=== PATIENT | female | born 1970 | race African-American/Black ===

== ENCOUNTER 2017-01-15 13:54 | Observation (INO) ==
[2017-01-15] MEDS ORDERED: KETOROLAC 30 MG/1 ML VIAL IV STA (16:14)
[2017-01-15] MEDS ORDERED: KETOROLAC 30 MG/1 ML VIAL ONE (16:22)
--- NOTE | 2017-01-15 16:44 | CT Report ---
History: Dizziness. Right-sided weakness Date: 01/15/2017 Study: CT head without contrast Comparison exam: CT head September 20, [address] sections were obtained through the head without IV contrast. Total DLP measures 1012.1 mGy*cm. The exam was performed on an outpatient basis through the emergency room. The ventricles are midline in position without evidence of hydrocephalus. There is no mass or parenchymal hemorrhage. There is no gross CT evidence of acute cortical stroke. There is no extra-axial hematoma. There is no acute abnormality of the calvarium. There is moderate mucosal thickening in the ethmoid air cells bilaterally. There is at least mild mucosal thickening in the partially visualized maxillary and sphenoid sinuses. Impression: No acute intracranial abnormality. Sinus disease which may be chronic or allergic PROCEDURE INTERPRETED AT [facility] DEPARTMENT OF RADIOLOGY Final Report Signed by: Dr. Mally Barron
[2017-01-15 16:51] LABS: Basophils # 0.1 10*3/uL (0.0-0.2); Basophils % 0.5 % (0.0-0.8); Eosinophils # 0.7 10*3/uL (0.0-0.87); Eosinophils % 5.8 % (0.00-10.9); Hematocrit 35.3 VOL% (35.7-47.0); Hemoglobin 11.5 GM/DL (12.0-16.0); Immature Granulocytes % 0.3 %; Immature Granulocytes Absolute 0.03 #; Lymphocytes % 33.5 % (21.3-54.2); Mean Corpuscular HGB Conc 32.6 GM/DL (32-36); Mean Corpuscular Hemoglobin 24 PG (27-34); Mean Corpuscular Volume 73.1 FL (87-102); Mean Platelet Volume 10.4 FL (9.6-12.0); Monocytes # 0.8 10*3/uL (0.11-0.8); Monocytes % 6.3 % (1.7-12.7); Neutrophils # 6.4 10*3/uL (1.4-7.4); Neutrophils % 53.6 % (38.7-73.9); Platelet Count 443 T/CUMM (130-400); Red Blood Count 4.83 MC/CUMM (3.8-5.5); Red Cell Distribution Width 14.1 % (9.3-17.3); White Blood Count 11.9 T/CUMM (4-12)
[2017-01-15 16:59] LABS: PT Patient Result 10.4 SECS; Partial Thromboplastin Time 28.5 SECS (0-40)
--- NOTE | 2017-01-15 17:01 | Emergency Department Note ---
IGloria Gwan, am scribing for, and in the presence of, Betzy Denis DO 16:20 . IAdeel Debra, DO, personally performed the services described in this documentation, ascribed by Cori Castro in my presence, and it is both accurate and complete 701 . Arrival - Arrival Chief Complaint: Chest Pain Stated Complaint: high bp, dizziness, pain rt arm to chest ED Nursing Triage Note: c/o high bp and pain in rt arm and going into rt side of chest. +dizziness onset saturday Mode of Arrival: Ambulatory Limitations: No Limitations Source: Patient, Old Records Reviewed, RN Notes Reviewed - History of Present Illness HPI Narrative: Pt is a 46 y/o female, with a hx of HTN, who presents to the ED for further evaluation of elvated BP. During triage, pt's BP was 159/117. Patient stated that she reported to her PCP JOSE Morfin due to her intermittent dizziness. After further evaluation, the pt was prompted to report to the ED. She also noted that her dizziness is worse during the day and that she has been having pain in her right arm that radiates up her arm to her shoulder and into her chest on the right side. Patient confirmed that her sxs have an onset of 07/2017, that she has a FMHx of heart disease and CA. She denies any injury or trauma to that area, any hx of DM or any other medical problems. During exam, the patient stated that she has also been having pain/swelling in her right ankle with no hx of trauma or injury to that area. No other problems/complaints reported in ED. Onset (ago): week(s) Consistency: intermittent Severity: moderate Allergies/Adverse Reactions: Allergies Allergy/AdvReac Type Severity Reaction Status Date / Time sulfamethoxazole Allergy ITCHING Verified 07/16/15 04:42 [From Bactrim] trimethoprim [From Bactrim] Allergy ITCHING Verified 07/16/15 04:42 Home Medications: Home Medications Medication Instructions Recorded Confirmed Type Butalb/Acetaminophen/Caffeine 1 each PO Q24H 01/15/17 01/15/17 History [Tjpbvtrk-Lmrxdgmzgxapa-Gzlj Cp] Cetirizine HCl [Cetirizine Tab] 10 mg PO DAILY 01/15/17 01/15/17 History Estradiol [Estradiol Tab] 0.5 mg PO DAILY 01/15/17 01/15/17 History Fluticasone Propionate 1 spray BOTH NARES DAILY 01/15/17 01/15/17 History [Fluticasone 50 mcg Nasal [place]] amLODIPine [Norvasc] 5 mg PO DAILY 01/15/17 01/15/17 History cloNIDine TAB [Catapres Tab] 0.1 mg PO BEDTIME 01/15/17 01/15/17 History Review of System - Review of System 12 point system: reviewed and no additional remarkable complaints except as stated - Review of System Constitutional: Present: as per HPI, other (dizziness) Cardiovascular: Present: as per HPI, chest pain Musculoskeletal: Present: as per HPI, other (right ankle pain) Medical,Surgical,& Family Hx - Medical History Cardio: History of: Hypertension Neurology: History of: Neurological Problems (headaches) Hematology: History of: Anemia - Social History Smoking Status: Never smoker Frequency of Alcohol Use: None Type of Drug Use: None Exam Vital Signs: Vital Signs Temperature 97.6 F 01/15/17 15:49 Pulse Rate 68 01/15/17 16:00 Respiratory Rate 18 01/15/17 16:00 Blood Pressure 160/94 01/15/17 15:49 O2 Sat by Pulse Oximetry 98 01/15/17 15:49 - General General appearance: alert, in no apparent distress - Head Head exam: Present: atraumatic, normocephalic - Eye Eye exam: Present: normal appearance, PERRL, EOMI - ENT ENT exam: Present: normal oropharynx, mucous membranes moist, TM's normal bilaterally, normal external ear exam - Neck Neck exam: Present: full ROM, trachea midline. Absent: tenderness, meningismus , lymphadenopathy, thyromegaly - Chest Chest inspection: Present: symmetric chest wall rise. Absent: tenderness - Respiratory Respiratory exam: Present: normal lung sounds bilaterally. Absent: respiratory distress - Cardiovascular Cardiovascular exam: Present: regular rate, normal rhythm, normal heart sounds. Absent: murmur, rubs, gallop - Abdominal Exam Abdominal exam: Present: soft, normal bowel sounds. Absent: distention, tenderness, guarding, rebound - Extremities Exam Extremities exam: Present: full ROM. Absent: tenderness, pedal edema, calf tenderness - Back Exam Back exam: Present: full ROM. Absent: tenderness - Neurological Exam Neurological exam: Present: alert, oriented X3, CN II-XII intact. Absent: motor sensory deficit - Psychiatric Psychiatric exam: Present: normal affect, normal mood - Skin Skin exam: Present: warm, dry, intact, normal color Course Course Narrative: spoke with Dr Roldan who will admit pt Results - Labs CBC & BMP: 01/15/17 16:32 01/15/17 16:32 Lab Results: I have reviewed the patients labs Labs: Laboratory Tests 01/15/17 16:32 WBC 11.9 RBC 4.83 Hgb 11.5 L Hct 35.3 L MCV 73.1 L MCH 24 L Plt Count 443 H Laboratory Tests 01/15/17 16:32 INR 1.0 PT Patient/Control Mix 10.4 Circ Anticoag PTT 28.5 - Diagnostic Findings Procedure: Chest x-ray: report reviewed by me (No acute cardiopulmonary process. ), CT: report reviewed by me (Head CT: No acute intracranial abnormality. Sinus disease which may be chronic or allergic.) Disposition Clinical Impression: Chest pain Case discussed with: patient Disposition: Still a Patient Condition: Stable Time of Disposition: 17:54
--- NOTE | 2017-01-15 17:09 | XRay Report ---
Exam: XR chest 1V portable Indication: Chest pain , hypertension, dizziness, right arm pain Comparison study: 2009 Findings: The heart, mediastinum and bony structures are stable from prior. There is no focal consolidation, pneumothorax or pleural effusion identified. Impression: No acute cardiopulmonary process. PROCEDURE INTERPRETED AT [facility] [place] DEPARTMENT OF RADIOLOGY Final Report Signed by: Isai Parker
[2017-01-15 17:18] LABS: Alanine Aminotransferase 21 U/L (13-56); Alkaline Phosphatase 126 U/L (45-117); Aspartate Amino Transferase 16 U/L (0-37); Blood Urea Nitrogen 10 MG/DL (7-18); Glucose 84 MG/DL (74-106); Osmolality,Calculated 283.8 MOS/KG (273-304); Potassium 3.5 MMOL/L (3.5-5.1); Sodium 144 MMOL/L (136-145); Total Protein 8.3 G/DL (6.4-8.3); Troponin I Only < 0.015 NG/ML (0.00-0.045)
[2017-01-15] MEDS ORDERED: MORPHINE 2 MG/1 ML SYRINGE IV PRN (17:54)
[2017-01-15] MEDS ORDERED: ACETAMINOPHEN 325 MG TABLET PO PRN (17:54)
[2017-01-15] MEDS ORDERED: ONDANSETRON 4 MG/2 ML VIAL IV PRN (17:54)
[2017-01-15] MEDS ORDERED: POTASSIUM CHLORIDE 10 MEQ TABLET PO ONE (20:47)
[2017-01-15] MEDS ORDERED: [UNRECOGNIZED DRUG - OTHER] PO SCH (21:00)
[2017-01-15] MEDS ORDERED: BUTALB PO SCH (21:00)
[2017-01-15] MEDS ORDERED: ACETAMINOPHEN PO SCH (21:00)
[2017-01-15] MEDS ORDERED: CAFFEINE PO SCH (21:00)
[2017-01-15] MEDS: cloNIDine 0.1 MG TABLET PO SCH (21:32)
[2017-01-15] MEDS: DOCUSATE SODIUM 100 MG CAPSULE PO SCH (21:32)
[2017-01-15] MEDS: ENOXAPARIN 40 MG/0.4 ML SYRINGE SUBCUT SCH (21:32)
[2017-01-15] MEDS: SODIUM CHLORIDE 0.9% 1,000 ML IV SCH (21:32)
[2017-01-16] MEDS: SODIUM CHLORIDE 0.9% 1,000 ML IV SCH ×2 (04:10→14:00)
[2017-01-16 05:43] LABS: Risk Ratio 3.78; VLDL CHOLESTEROL 34.2 MG/DL
[2017-01-16 05:49] LABS: Calcium 8.6 MG/DL (8.5-10.1); Magnesium 2.2 MG/DL (1.8-2.4); Osmolality,Calculated 293.4 MOS/KG (273-304); Potassium 3.8 MMOL/L (3.5-5.1)
[2017-01-16 05:59] LABS: Troponin I Only < 0.015 NG/ML (0.00-0.045)
--- NOTE | 2017-01-16 07:20 | EKG Report ---
Stationary ECG Study [facility] Test Date: 01/16/2017 7:19:48 AM Pat Name: ALLAN SWANSON Department: Room: 263 Gender: F Care Advocate: DANIKA : 1970 Requested by: Betzy Denis Order Number: [id number] Reading MD: STANLEY GRIFFITHS Intervals [place] Rate: 66 P: 32 CO: 175 QRS: 45 QRSD: 82 T: 35 QT: 445 QTc: 458 Interpretive Statements SINUS RHYTHM SEPTAL MYOCARDIAL INFARCTION, OF INDETERMINATE AGE Electronically Signed On 01-18-17 12:15:51 DIRECTOR OF PUPIL PERSONNEL PROGRAM by STANLEY GRIFFITHS [email or web address]
--- NOTE | 2017-01-16 09:24 | Internal Med History&Physical ---
Assessment and Plan (1) Chest pain Status: Acute Assessment and plan: 46-year-old female admitted to acute care * Shoulder and chest pain. It appears atypical in nature. Cardiac enzymes are negative. EKG shows nonspecific ST-T changes. Will get cardiology to evaluate with her strong family history of heart disease * Hypertension. Blood pressure has been high. Will adjust her medications * Chronic headaches. Probably migraine. She is not on any preventive medications. Not sure if the headaches are coming from blood pressure being high. * Discussed with patient and her family. * I am seeing patient for Dr. Roldan who is out with sickness. Current Visit: Yes (2) Uncontrolled hypertension Status: Acute Current Visit: Yes (3) Chronic headaches Status: Acute Current Visit: Yes History of Present Illness Chief complaint: Shoulder pain and dizziness History of present illness: Ms. Sandy is a 46 year old female with history of hypertension and chronic headaches who presented to the emergency room with high blood pressure. She has been having dizziness off and on. She had an episode of dizziness about 2 weeks ago. She went to after-hours clinic and was sent to the emergency room because of elevated blood pressure. She was also having pain in the right arm that radiated to the shoulder and somewhat into her chest. She has been having these symptoms for past week. She denies any chest pain on exertion. She denies any nausea vomiting or diarrhea. She denies any fever or chills. 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 No history of smoking alcohol use. She also has been having some swelling in her ankles. She has had previous reaction to ashley inhibitors and Bactrim. She is a schoolteacher Home Medications Medication Instructions Recorded Confirmed Type Butalb/Acetaminophen/Caffeine 1 each PO Q24H 01/15/17 01/15/17 History [Lknhpwky-Sckkxamfrlkcq-Wtye Cp] Cetirizine HCl [Cetirizine Tab] 10 mg PO DAILY 01/15/17 01/15/17 History Estradiol [Estradiol Tab] 0.5 mg PO DAILY 01/15/17 01/15/17 History Fluticasone Propionate 1 spray BOTH NARES DAILY 01/15/17 01/15/17 History [Fluticasone 50 mcg Nasal [place]] amLODIPine [Norvasc] 5 mg PO DAILY 01/15/17 01/15/17 History cloNIDine TAB [Catapres Tab] 0.1 mg PO BEDTIME 01/15/17 01/15/17 History Allergies Allergy/AdvReac Type Severity Reaction Status Date / Time lisinopril Allergy HIVES Verified 01/16/17 02:19 sulfamethoxazole Allergy ITCHING Verified 07/16/15 04:42 [From Bactrim] trimethoprim [From Bactrim] Allergy ITCHING Verified 07/16/15 04:42 Medical,Surgical,& Family Hx - Medical History Cardio: History of: Hypertension Neurology: History of: Neurological Problems (headaches) Hematology: History of: Anemia - Surgical History HEENT Surgeries: Surgical HX of: Tonsilectomy & Adenoidectomy Abdominal Surgeries: Surgical HX of: Cholecystectomy Reproductive Surgeries: Surgical HX of;: Genitourinary Surgery (Bladder surgery) , Hysterectomy - Family History Family History: Reports;: Family Cancer (mother, breast CA dad lung CA), Family Heart Disease - Social History Smoking Status: Never smoker Frequency of Alcohol Use: None Type of Drug Use: None Marital Status: Lives With:: Spouse Functional capacity: independent ambulation 12 point system: reviewed and no additional remarkable complaints except as stated (Mentioned in HPI) Exam - Constitutional Vitals: Period Temp Pulse Resp BP Sys/[place] Pulse Ox Last 24 Hr 97 F-98.3 F 73-77 16-20 106-137/61-100 95-98 Exam: Examination: GENERAL: NAD. HEENT: PERRLA. EOMI. Mucous membranes are moist. NECK: Neck is supple. No JVD. No carotid bruit. No thyromegaly. CVS: Regular rate and rhythm. S1 and S2 are normal. RESPIRATORY: Lungs are clear. No rales or rhonchi. ABDOMEN: Soft and nontender. Bowel sounds are present. No hepatosplenomegaly. EXT: No edema. Peripheral pulses are present. MEDICAL CLAIMS EXAMINER: No gross focal changes SKIN: Warm and dry. MSK: No obvious deformity. Results - Labs CBC & BMP: 01/15/17 16:32 01/16/17 04:51 Lab Results: I have reviewed the past 24 hour labs
--- NOTE | 2017-01-16 12:27 | Ultrasound Report ---
Bilateral carotid Doppler. Indication: Dizziness. Grayscale, color-flow, and spectral analysis performed and interpreted. There is mild plaque noted at the origin of the right external carotid artery. The right internal carotid artery peak systolic velocity is 88 cm/s, with an IC/CC ratio of 1.4. There is mild calcific plaque present at the left carotid bulb. The left internal carotid artery peak systolic velocity is 64 cm/s, with an IC/CC ratio of 0.8. There is antegrade flow within each vertebral artery. Impression: Using NASCET criteria, findings consistent with less than 50% stenosis bilaterally. PROCEDURE INTERPRETED AT [facility] DEPARTMENT OF RADIOLOGY Final Report Signed by: Dr. Oneyda Paz
[2017-01-16] MEDS: DOCUSATE SODIUM 100 MG CAPSULE PO SCH ×2 (13:30→22:21)
[2017-01-16] MEDS: amLODIPine 5 MG TABLET PO SCH (13:30)
[2017-01-16] MEDS: CETIRIZINE 10 MG TABLET PO SCH (13:30)
[2017-01-16] MEDS: POTASSIUM CHLORIDE 10 MEQ TABLET PO SCH (13:30)
[2017-01-16] MEDS: ESTRADIOL 1 MG TABLET PO SCH (13:30)
[2017-01-16] MEDS: PANTOPRAZOLE 40 MG TABLET PO SCH (13:30)
[2017-01-16] MEDS: FLUTICASONE 50 MCG NASAL SPRAY 16 GM BOTTLE BOTH NARES SCH (13:30)
[2017-01-16] MEDS ORDERED: ASPIRIN CHEW 81 MG TABLET PO ONE (14:35)
[2017-01-16] MEDS: GABAPENTIN 100 MG CAPSULE PO SCH ×2 (15:19→22:21)
[2017-01-16] MEDS: traMADol 50 MG TABLET PO SCH ×2 (15:20→22:25)
[2017-01-16] MEDS: NAPROXEN 250 MG TABLET PO SCH ×2 (15:20→22:20)
[2017-01-16] MEDS: hydroCHLOROthiazide 12.5 MG CAPSULE PO SCH (15:21)
--- NOTE | 2017-01-16 16:03 | Sleep Medicine Consult ---
Assessment and Plan (1) Unspecified sleep apnea Status: Acute Assessment and plan: Her history certainly is concerning for sleep apnea. With severity of her sleepiness and her difficulty controlling hypertension, polysomnography is indicated. We will set her up for sleep study evaluation. Current Visit: Yes (2) Uncontrolled hypertension Status: Chronic Assessment and plan: The prevalence rate for obstructive sleep apnea patients with hypertension is 35 %. That rate can be as high as 80% in patients who require 4 or more medications for blood pressure control. Current Visit: Yes History of Present Illness Chief complaint: sleep apnea History of present illness: Ms. Sandy is a 46 year old female admitted with chest pain. She has a history of loud snoring and will awaken from sleep short of breath. She has difficulty maintaining sleep and has significant problems with daytime fatigue and sleepiness. She's never been told that she stops breathing during her sleep but her snoring has been noted to be loud and disruptive to the sleep of her . She is quite sleepy during the day, having an [place] sleepiness score of over 15. She is admitted on this occasion with atypical chest pain. Home Medications Medication Instructions Recorded Confirmed Type Butalb/Acetaminophen/Caffeine 1 each PO Q24H 01/15/17 01/15/17 History [Gmsyllmb-Fplqydomacbet-Psxa Cp] Cetirizine HCl [Cetirizine Tab] 10 mg PO DAILY 01/15/17 01/15/17 History Estradiol [Estradiol Tab] 0.5 mg PO DAILY 01/15/17 01/15/17 History Fluticasone Propionate 1 spray BOTH NARES DAILY 01/15/17 01/15/17 History [Fluticasone 50 mcg Nasal [place]] amLODIPine [Norvasc] 5 mg PO DAILY 01/15/17 01/15/17 History cloNIDine TAB [Catapres Tab] 0.1 mg PO BEDTIME 01/15/17 01/15/17 History Allergies Allergy/AdvReac Type Severity Reaction Status Date / Time lisinopril Allergy HIVES Verified 01/16/17 02:19 sulfamethoxazole Allergy ITCHING Verified 07/16/15 04:42 [From Bactrim] trimethoprim [From Bactrim] Allergy ITCHING Verified 07/16/15 04:42 Review of systems: Also notable for restless legs and discomfort of her legs that disturb her sleep. Exam (Pulmonay) H&P - Constitutional Vitals: Period Temp Pulse Resp BP Sys/[place] Pulse Ox Last 24 Hr 97 F-98.3 F 73-81 16-20 106-137/61-100 95-98 Exam: She is alert and responsive in no acute distress. Pupils equal round reactive to light and accommodation. Extraocular movements intact. Oropharynx with class IV Mallampati exam. Neck is supple without adenopathy or thyromegaly. No supraclavicular adenopathy is noted. Chest with symmetrical breath sounds without focal wheezes, rhonchi, or rales. Cardiac exam reveals a regular rhythm without murmur or gallop. Abdomen soft nontender without palpable hepatosplenomegaly or mass. Extremities are without increased clubbing cyanosis or edema. Neurologically, she is grossly intact. Medical,Surgical,& Family Hx - Medical History Cardio: History of: Hypertension Neurology: History of: Neurological Problems (headaches) Hematology: History of: Anemia - Surgical History HEENT Surgeries: Surgical HX of: Tonsilectomy & Adenoidectomy Abdominal Surgeries: Surgical HX of: Cholecystectomy Reproductive Surgeries: Surgical HX of;: Genitourinary Surgery (Bladder surgery) , Hysterectomy - Family History Family History: Reports;: Family Cancer (mother, breast CA dad lung CA), Family Heart Disease Additional Family History: She has a nephew with obstructive sleep apnea - Social History Smoking Status: Never smoker Frequency of Alcohol Use: None Type of Drug Use: None Results - Labs CBC & BMP: 01/15/17 16:32 01/16/17 04:51 Lab Results: I have reviewed the past 24 hour labs
--- NOTE | 2017-01-16 17:24 | ECHO Report ---
Dania Sandy Exam Date: 01/16/2017 13:36 Referring Physician: Technologist: Ila Rivers RDCS Age: 46 Ht (in): Wt (lb): Gender: F Exam Location: [facility] Echo Indications: Chest pain, unspecified, Essential (primary) hypertension, Dizziness and giddiness, Shortness of breath, Orthopnea, Chronic headaches BP: / HR: Rhythm: Sinus Technical Quality: Good IMPRESSIONS Left ventricular ejection fraction is estimated at 65 %. Findings suggestive of left ventricular diastolic dysfunction. The right atrium is mildly enlarged. The left atrium is mildly enlarged. There is no mitral regurgitation. Morphologically normal aortic valve without significant sclerosis or stenosis. Trace to mild tricuspid valve regurgitation. Tricuspid regurgitation velocities suggest a PAP of 39 mmHg. Morphologically normal pulmonic valve without significant stenosis. MEASUREMENTS (Male / Female) Normal Values 2D ECHO LV Diastolic Diameter PLAX 4.6 cm 4.2 - 5.9 / 3.9 - 5.3 cm LV Systolic Diameter PLAX 2.4 cm LV Fractional Shortening PLAX 49.0 % IVS Diastolic Thickness 0.9 cm 0.6 - 1.0 / 0.6 - 0.9 cm LVPW Diastolic Thickness 0.9 cm 0.6 - 1.0 / 0.6 - 0.9 cm RV Internal Dim ED PLAX 2.8 cm Aortic Root Diameter 3.1 cm LA Systolic Diameter LX 3.9 cm 3.0 - 4.0 / 2.7 - 3.8 cm DOPPLER TR Peak Velocity 271.0 cm/s TR Peak Gradient 29.4 mmHg FINDINGS Left Ventricle Normal left ventricular cavity size. Normal left ventricular wall thickness. Left ventricular ejection fraction is estimated at 65 %.Findings suggestive of left ventricular diastolic dysfunction. Right Ventricle The right ventricle is normal in size and function. Right Atrium The right atrium is mildly enlarged. Left Atrium The left atrium is mildly enlarged. Mitral Valve Morphologically normal mitral valve without significant stenosis or prolapse. There is no mitral regurgitation. Aortic Valve Morphologically normal aortic valve without significant sclerosis or stenosis. There is no aortic regurgitation. Tricuspid Valve Morphologically normal tricuspid valve. Trace to mild tricuspid valve regurgitation. Tricuspid regurgitation velocities suggest a PAP of 39 mmHg. Pulmonic Valve Morphologically normal pulmonic valve without significant stenosis. There is no pulmonic regurgitation. Pericardium Normal pericardium without effusion. Aorta Normal ascending aorta dimension. Roland Castillo MD (Electronically Signed) Final Date: 16 January 2017 17:24
[2017-01-16] MEDS ORDERED: traZODone 50 MG TABLET PO SCH (21:00)
--- NOTE | 2017-01-16 21:46 | Cardiology Consult Note ---
Stephan Watson Rachel, RN, am scribing for, and in the presence of, Roland Castillo MD 21:45. Assessment and Plan (1) Atypical chest pain Status: Acute Assessment and plan: Her chest pain seems to be musculoskeletal in nature. As her pain was reproducible upon exam. Her troponins have been negative 2. Her EKG did not reveal any acute findings. Will continue to monitor troponins and EKG. Chest pain is atypical. However she does have risk factors for cardiac disease My plan: Have her stay on an aspirin 81 mg per day. She she does not have ACS and had only one episode, so we can let her go home tomorrow and do an outpatient stress test next week. Meanwhile will treat for reproducible right shoulder pain with Tylenol, tramadol, naproxin , gabapentin. For her hypertension we'll add HCTZ 12.5 mg daily Echo-evaluate orthopnea and PND-could be some diastolic dysfunction or systolic dysfunction. She does have some symptoms suggestive of sleep apnea. Dr. Bernard is consulted The dizziness carotid ultrasound was done. Has some anxiety/insomnia. Will treat with trazodone 25 mg daily at bedtime Check fasting lipid profile and treat per guidelines. Thank you for allowing to participate in this patient's care Current Visit: Yes (2) Hyperlipidemia Status: Acute Assessment and plan: Consider starting patient on a statin for further risk stratification. Current Visit: Yes (3) Orthopnea Status: Acute Assessment and plan: Echo has been ordered to further evaluate this. BNP was done and was noted to be 12. Current Visit: Yes (4) Family history of heart disease in brother Status: Chronic Current Visit: Yes (5) Uncontrolled hypertension Status: Chronic Assessment and plan: Patient has history of hypertension. This is regularly managed by Dr. Erma Roldan. Her blood pressure has been well controlled during her hospital stay. We will continue with current plan of care. Current Visit: Yes (6) Dizziness Status: Acute Assessment and plan: She reports dizzy spells. Carotid Dopplers have been ordered to further evaluate. Current Visit: Yes (7) Sleep disorder Status: Acute Assessment and plan: We will consult Dr. Bernard to further evaluate patient's sleep disorder. Current Visit: Yes History of Present Illness - Data of Consult Patient: new to practice Consult date: 01/16/17 Requesting Physician: Erma Roldan Primary care physician: Erma Roldan - Consult Narrative Reason for consult: Chest pain and right arm pain History of present illness: Ms. Sandy is a 46 year old female without known coronary artery disease, not routinely followed by college arch[facility]. Her primary care provider is Dr. Erma Roldan. She presented to [facility] for further evaluation of right arm pain , chest discomfort and dizziness. She has risk factors significant for hypertension, sedentary lifestyle, obesity, hyperlipidemia (however patient is not on a statin at home. She reports that this is controlled with her diet.) and family history of premature coronary artery disease (brother had MS at age 45 and her other brother had an MS at age 48). She is a past medical history of migraines. Significant surgical history is noted. She tells me that she has never had a cardiac workup. She was in her usual state of health until 2 weeks ago when she began having right arm pain while cooking. This pain then radiated to her left chest wall. She describes this pain as a severe stabbing pain that lasted 5-10 minutes. She took 2 aspirins and laid down and this relieved her pain. She reports that this was not made worse with activity. Shortness of breath and dizziness was also associated with this. She denies diaphoresis, nausea and palpitations. She reports having no further episodes of this chest discomfort. She tells me that she has continued to have right arm soreness. This is aggravated with range of motion. She tells me that she has been picking up her granddaughter with her right arm multiple times a day. Upon exam, this pain is reproducible. She tells me that this is the same pain that she felt 2 weeks ago, only less severe and without radiation to her chest. Of note, she also reports that she has been feeling dizzy approximately 2-3 times a day since last Saturday. She tells me that this dizziness last approximately 10 minutes and gets better when she sits down. She is unable to identify any aggravating factors. She tells me that she has been checking her blood pressure regularly at home. She reports that her blood pressure has been averaging around 145/95. She denies any heart racing and palpitations. She tells me that Dr. Mullins diagnosed her with a sinus cyst in the past, she is worried that this could possibly be contributing to her dizziness. She reports that she has felt very tired over the past week. She admits to snoring loudly at night. Will get Dr. Bernard to come evaluate her for obstructive sleep apnea. She also tells me that she cannot lay flat to sleep at night due to shortness of breath. She sleeps on multiple pillows in order to sleep comfortably. This is concerning, will order echo for further evaluation. Patient was seen and examined on telemetry. She is awake alert and in no acute distress. She is currently chest pain free. She denies shortness of breath, palpitations and dizziness. Her troponins have been negative 2 checks. BNP is 12. EKG does not reveal any acute findings. CC: Erma Roldan, DO - Home Medications and Allergies Home Medications: Home Medications Medication Instructions Recorded Confirmed Type Butalb/Acetaminophen/Caffeine 1 each PO Q24H 01/15/17 01/15/17 History [Gkfqzofw-Vwyytpuivyydv-Ifpl Cp] Cetirizine HCl [Cetirizine Tab] 10 mg PO DAILY 01/15/17 01/15/17 History Estradiol [Estradiol Tab] 0.5 mg PO DAILY 01/15/17 01/15/17 History Fluticasone Propionate 1 spray BOTH NARES DAILY 01/15/17 01/15/17 History [Fluticasone [address] [place]] amLODIPine [Norvasc] 5 mg PO DAILY 01/15/17 01/15/17 History cloNIDine TAB [Catapres Tab] 0.1 mg PO BEDTIME 01/15/17 01/15/17 History Allergies/Adverse Reactions: Allergies Allergy/AdvReac Type Severity Reaction Status Date / Time lisinopril Allergy HIVES Verified 01/16/17 02:19 sulfamethoxazole Allergy ITCHING Verified 07/16/15 04:42 [From Bactrim] trimethoprim [From Bactrim] Allergy ITCHING Verified 07/16/15 04:42 - Constitutional Constitutional: Present: fatigue, headache(s). Absent: anorexia, chills, fever( s), weakness, weight gain, weight loss - Cardiovascular Cardiovascular: Present: as per HPI, dyspnea, radiating jaw, neck or arm pain, lightheadedness, orthopnea. Absent: claudication, diaphoresis, edema, palpitations, PND - Respiratory Respiratory: Present: dyspnea, snoring. Absent: cough, hemoptysis, dyspnea on exertion, wheezing, pain on inspiration, change in phlegm color - Gastrointestinal Gastrointestinal: Absent: abdominal pain, coffee ground emesis, constipation, cramping, diarrhea, heartburn, melena, nausea, vomiting, jaundice - Musculoskeletal Musculoskeletal: Present: other (Right arm pain). Absent: joint swelling, myalgias - Neurological Neurological: Present: dizziness, headache(s). Absent: numbness, paresthesias, radicular pain, syncope - Psychiatric Psychiatric: Absent: anxiety, depression, panic attacks Medical,Surgical,& Family Hx - Medical History Cardio: History of: Hypertension Neurology: History of: Neurological Problems (headaches) Endocrine: History of: Dyslipidemia (However this has been controlled with her diet.) Hematology: History of: Anemia - Surgical History HEENT Surgeries: Surgical HX of: Tonsilectomy & Adenoidectomy Abdominal Surgeries: Surgical HX of: Cholecystectomy Reproductive Surgeries: Surgical HX of;: Genitourinary Surgery (Bladder surgery) , Hysterectomy - Family History Family History: Reports;: Family Cancer (mother, breast CA dad lung CA), Family Heart Disease - Social History Smoking Status: Never smoker Frequency of Alcohol Use: None Type of Drug Use: None Physical Examination Vital Signs Temp Pulse Resp BP Pulse Ox 97.5 F L 82 18 159/117 98 01/15/17 14:03 01/15/17 14:03 01/15/17 14:03 01/15/17 14:03 01/15/17 14:03 General: Present: Appears Well, No Apparent Distress Neck: Present: Supple Neck, Midline Trachea, No JVD/HJR, No Masses, No Bruit Cardiac: Present: Reg Rate and Rhythm, Regular Rate, Regular Rhythm, S1/S2, No Murmur. Absent: Gallop, Tachycardia, Bradycardia Lungs: Present: Normal Exam, Clear Ascult./Percussion, Normal Breath Sounds, No Wheeze, Rales, Rhonchi. Absent: Oxygen Abdomen: Present: Soft, Active Bowel Sounds, No Masses, Non-Tender. Absent: Ascites, Firm Skin: Present: Clear. Absent: Rash, Suspicious Lesions, Ulceration Extremities: Present: Normal Gait, No Clubbing, No Cyanosis, No Edema, Normal Upper Extr. Pulses, Normal Lower Extr. Pulses Result/EKG - Labs CBC & BMP: 01/15/17 16:32 01/16/17 04:51 Lab Results: I have reviewed the past 24 hour labs Labs: Laboratory Results - last 24 hr 01/16/17 01/16/17 01/16/17 04:50 04:50 04:51 Sodium 147 H Potassium 3.8 Chloride 110 H Carbon Dioxide 27 Anion Gap 13.8 BUN 16 Creatinine 0.90 GFR Calculation 90 BUN/Creatinine Ratio 17.00 Glucose 112 H Calculated Osmolality 293.4 Calcium 8.6 Magnesium 2.2 Total Creatine Kinase 246 H D Troponin I < 0.015 Triglycerides 171 H Cholesterol 208 H LDL Cholesterol 128.0 VLDL Cholesterol 34.2 HDL Cholesterol 55 Heart Disease Risk Ratio 3.78 - EKG EKG results: interpreted by me, sinus rhythm I, Roland Castillo MD, personally performed the services described in this documentation, ascribed by Oneyda Rothman RN in my presence, and it is both accurate and complete .
[2017-01-16] MEDS ORDERED: SIMVASTATIN 10 MG TABLET PO SCH (22:00)
[2017-01-16] MEDS: cloNIDine 0.1 MG TABLET PO SCH (22:21)
[2017-01-16] MEDS: ENOXAPARIN 40 MG/0.4 ML SYRINGE SUBCUT SCH (22:22)
--- NOTE | 2017-01-17 07:20 | EKG Report ---
Stationary ECG Study [facility] Test Date: 01/17/2017 7:19:31 AM Pat Name: ALLAN SWANSON Department: Room: 263 Gender: F Paperback Machine Operator: DANIKA : 1970 Requested by: Betzy Denis Order Number: [id number] Reading MD: HANNAH MENDEZ Intervals [place] Rate: 63 P: 30 MD: 185 QRS: 45 QRSD: 90 T: 32 QT: 438 QTc: 445 Interpretive Statements SINUS RHYTHM Electronically Signed On 01-20-17 20:04:16 ORDER PICKER/ASSEMBLER by HANNAH MENDEZ [email or web address]
[2017-01-17] MEDS: FLUTICASONE 50 MCG NASAL SPRAY 16 GM BOTTLE BOTH NARES SCH (08:49)
[2017-01-17] MEDS: GABAPENTIN 100 MG CAPSULE PO SCH (08:49)
[2017-01-17] MEDS: POTASSIUM CHLORIDE 10 MEQ TABLET PO SCH (08:50)
[2017-01-17] MEDS: NAPROXEN 250 MG TABLET PO SCH (08:50)
[2017-01-17] MEDS: traMADol 50 MG TABLET PO SCH (08:50)
[2017-01-17] MEDS: CETIRIZINE 10 MG TABLET PO SCH (08:50)
[2017-01-17] MEDS: hydroCHLOROthiazide 12.5 MG CAPSULE PO SCH (08:50)
[2017-01-17] MEDS: PANTOPRAZOLE 40 MG TABLET PO SCH (08:50)
[2017-01-17] MEDS: ESTRADIOL 1 MG TABLET PO SCH ×2 (08:50→08:56)
[2017-01-17] MEDS: amLODIPine 5 MG TABLET PO SCH (08:50)
[2017-01-17] MEDS: DOCUSATE SODIUM 100 MG CAPSULE PO SCH (08:50)
[2017-01-17] MEDS ORDERED: ASPIRIN CHEW 81 MG TABLET PO SCH (09:00)
--- NOTE | 2017-01-17 11:41 | EKG Report ---
Stationary ECG Study [facility] Test Date: 01/15/2017 2:09:30 PM Pat Name: ALLAN SWANSON Department: Room: 263 Gender: F Edge Cutter: Keyla : 1970 Requested by: Betzy Denis Order Number: [id number] Reading MD: STANLEY GRIFFITHS Intervals [place] Rate: 69 P: 49 IA: 161 QRS: 48 QRSD: 85 T: 37 QT: 406 QTc: 426 Interpretive Statements SINUS RHYTHM QUESTION LEAD SWITCH Electronically Signed On 01-17-17 12:20:47 JUICE STANDARDIZER by STANLEY GRIFFITHS [email or web address]
--- NOTE | 2017-01-17 12:54 | Discharge Summary ---
Hospital Course - Hospital Course Hospital Course: This is a 46 year old female with history of HTN, headaches, allergic rhinitis, intermittent SOB and sleep issues, who had presented with chest pain and dizziness. Chest pain has resolved, but dizziness has lingered to some extent. Sleep study has been scheduled outpatient, and she will be sent home with Meclizine. She will have cardiac stress testing outpatient per Dr. Castillo. ECHO showed mild pulmonary hypertension and left ventricular diastolic dysfunction, which may be explained by untreated sleep apnea. EF was normal at 65%. CT brain indicated chronic sinus disease, which may also be contributing to dizziness. Furthermore, she has had episodes of low normotensive blood pressure, likely to contribute to dizziness as well. Medications will be adjusted upon discharge. She can be discharged today. Discussed with patient and at bedside. She had been hypertensive upon admission. Diagnosis - Discharge Diagnosis (1) Chronic headaches Status: Chronic (2) Dizziness Status: Chronic (3) Family history of heart disease in brother Status: Chronic (4) Hyperlipidemia Status: Chronic (5) Orthopnea Status: Chronic (6) Unspecified sleep apnea Status: Chronic (7) Atypical chest pain Status: Resolved (8) Hypertension Status: Resolved Specialty Discharge - Follow Up or Referrals Follow up with: Roland Castillo MD [Physician] - 1 Week (OP cardiolyte next week & F/U with Jonathan in 2 weeks) Discharge Plan - Discharge Data Disposition: Disch To Home/Self Care Condition at Discharge: Stable Discharge Diet: low fat, low cholesterol Activity: increase activity as tolerated - Discharge Medications New [place]apentin Cap/Tab [Neurontin Cap/Tab] 100 mg PO TID #90 capsule Simvastatin [Zocor] 10 mg PO BEDTIME #30 tablet Acetaminophen Tab [Tylenol Tab] 650 mg PO Q6H PRN #0 tablet PRN Reason: Fever > 100.4 Or Headache Aspirin Chew Tab 81 mg PO DAILY tablet Docusate Sodium Cap [Colace Cap] 100 mg PO BID capsule Meclizine HCl 25 mg PO BEDTIME #30 tablet Pantoprazole Tab [Protonix Tab] 40 mg PO DAILY #14 tablet Potassium Chloride Cap/Tab [K Dur] 10 meq PO DAILY #30 tablet hydroCHLOROthiazide [Hydrochlorothiazide] 12.5 mg PO DAILY #30 capsule traMADol TAB [Ultram] 50 mg PO BID #14 tablet traZODone [Desyrel] 25 mg PO BEDTIME #30 tablet Continue Cetirizine HCl [Cetirizine Tab] 10 mg PO DAILY Butalb/Acetaminophen/Caffeine [Ztfcczsg-Dlzqkhdsfeuka-Fvnh Cp] 1 each PO Q24H Estradiol [Estradiol Tab] 0.5 mg PO DAILY Fluticasone Propionate [Fluticasone 50 mcg Nasal [place]] 1 spray BOTH NARES DAILY Discontinued amLODIPine [Norvasc] 5 mg PO DAILY cloNIDine TAB [Catapres Tab] 0.1 mg PO BEDTIME - Follow Up or Referral Follow Up: Roland Castillo MD [Physician] - 1 Week (OP ST cardiolyte next week & F/U with Jonathan in 2 weeks) Maura Bernard MD [Physician] - Erma Roldan DO [Physician] - - Forms/Instructions Additional Discharge Instructions: Follow up in clinic with Dr. Rahul Roldan at next appointment. Follow up with Dr. Bernard for sleep study per appointment set within the next 2-3 weeks. Follow up with Dr. Castillo for cardiac stress testing per appointment set within the next 1-2 weeks. Exam - Constitutional Vitals: Period Temp Pulse Resp BP Sys/[place]encia Pulse Ox Last 24 Hr 97.7 F-98.2 F 64-81 16-20 100-144/68-92 95-100 General appearance: no acute distress - Respiratory Respiratory exam: Present: clear to auscultation bilaterally - Cardiovascular Cardiovascular exam: Present: regular rate and rhythm - GI/Abdominal GI/Abdominal exam: Present: normal bowel sounds, soft. Absent: tenderness - Extremities Exam Extremities exam: Absent: edema - Neurological Exam Neurological exam: Present: alert, oriented X3 - Psychiatric Psychiatric exam: Present: normal affect, normal mood - Skin Skin exam: Present: warm, dry Discharge Results Labs on day of discharge: Labs from last 24 hours 01/16/17 12:31 B-Natriuretic Peptide 21 DS: Provider Date of admission: 01/15/17 17:54 Primary care physician: . No PCP Attending physician on admission: Erma Roldan DO Consults: 01/15/17 18:01 Consult to Pharmacy [CONS] Routine Reason for Pharmacy Consult: Adjust Meds Renal Funct 01/16/17 10:47 Consult to Physician [CONS] Routine Comment: possible sleep apnea Consulting Provider: Maura Bernard Consulting Provider Notified: No When should Consulting Provider be notified: Now 01/16/17 11:01 Consult to Sleep Center [CONS] Routine Reason for Sleep Center: Sleep Center Physician Consult Comment: possible sleep apnea Discharging clinician: Erma Roldan DO Expected date of discharge: 01/17/17
--- NOTE | 2017-01-17 12:55 | Internal Med Progress Note ---
Assessment and Plan (1) Atypical chest pain Status: Resolved Current Visit: Yes (2) Chronic headaches Status: Chronic Current Visit: Yes (3) Dizziness Status: Chronic Current Visit: Yes (4) Hyperlipidemia Status: Chronic Current Visit: Yes (5) Orthopnea Status: Chronic Current Visit: Yes (6) Unspecified sleep apnea Status: Chronic Current Visit: Yes Internal Medicine - PN: Subj Interval history: This is a 46 year old female with history of HTN, headaches, allergic rhinitis, intermittent SOB and sleep issues, who had presented with chest pain and dizziness. Chest pain has resolved, but dizziness has lingered to some extent. Sleep study has been scheduled outpatient, and she will be sent home with Meclizine. She will have cardiac stress testing outpatient per Dr. Castillo. Also, she reports blood pressure now low normotensive, which may be contributing to dizziness. Exam (Progress Note) - Constitutional Vitals: Period Temp Pulse Resp BP Sys/[place] Pulse Ox Last 24 Hr 97.7 F-98.2 F 64-81 16-20 100-144/68-92 95-100 General appearance: no acute distress - Respiratory Respiratory exam: Present: clear to auscultation bilaterally - Cardiovascular Cardiovascular exam: Present: regular rate and rhythm - GI/Abdominal GI/Abdominal exam: Present: normal bowel sounds, soft. Absent: tenderness - Extremities Exam Extremities exam: Absent: edema - Neurological Exam Neurological exam: Present: alert, oriented X3 - Psychiatric Psychiatric exam: Present: normal mood - Skin Skin exam: Present: warm, dry Results - Labs CBC & BMP: 01/15/17 16:32 01/16/17 04:51 Specialty Discharge - Follow Up or Referrals Follow up with: Roland Castillo MD [Physician] - 1 Week (OP ST cardiolyte next week & F/U with Jonathan in 2 weeks)
[2017-01-17 13:21] VITALS: BP 126/81
--- NOTE | 2017-01-17 13:54 | Cardiology Progress Note ---
Shirley, Oneyda Rothman RN, am scribing for, and in the presence of, Roland Castillo MD 13:53. Assessment and Plan (1) Atypical chest pain Status: Resolved Assessment and plan: Her chest pain seems to be musculoskeletal in nature. As her pain was reproducible upon exam. Her troponins have been negative 2. Her EKG did not reveal any acute findings. Will continue to monitor troponins and EKG. 01/16/17 Assessment and plan-Chest pain is atypical. However she does have risk factors for cardiac disease My plan: Have her stay on an aspirin 81 mg per day. She she does not have ACS and had only one episode, so we can let her go home tomorrow and do an outpatient stress test next week. Meanwhile will treat for reproducible right shoulder pain with Tylenol, tramadol, naproxin , gabapentin. For her hypertension we'll add HCTZ 12.5 mg daily Echo-evaluate orthopnea and PND-could be some diastolic dysfunction or systolic dysfunction. She does have some symptoms suggestive of sleep apnea. Dr. Bernard is consulted The dizziness carotid ultrasound was done. Has some anxiety/insomnia. Will treat with trazodone 25 mg daily at bedtime Check fasting lipid profile and treat per guidelines. 01/17/17 Assessment and plan-blood pressure is better. Insomnia is better. Will continue the new blood pressure medicine, the simvastatin, and the trazodone. Patient is going to be discharged home today. She will have a cardiac stress test done in the clinic in 1 week and follow-up with me in 2 weeks. Thank you for allowing me to participate in this patient's care Current Visit: Yes (2) Hyperlipidemia Status: Chronic Assessment and plan: Consider starting patient on a statin for further risk stratification. See plan of care listed above. Current Visit: Yes (3) Orthopnea Status: Chronic Assessment and plan: Echo was ordered and revealed an ejection fraction of 65%, ventricular diastolic dysfunction, trace to mild tricuspid valve regurgitation and PAP of 39 mmHg. Current Visit: Yes (4) Family history of heart disease in brother Status: Chronic Current Visit: Yes (5) Uncontrolled hypertension Status: Chronic Assessment and plan: Patient has history of hypertension. This is regularly managed by Dr. Erma Roldan. Her blood pressure has been well controlled during her hospital stay. We will continue with current plan of care. Current Visit: Yes (6) Dizziness Status: Chronic Assessment and plan: See assessment and plan listed above Current Visit: Yes (7) Sleep disorder Status: Acute Assessment and plan: This is being evaluated by Dr. Bernard. He plans to work this up outpatient. Current Visit: Yes Cardiology - PN: Subj Interval history: Patient is doing well this morning. She denies any new cardiac complaints. She tells me that she is supposed to be discharged home today. She denies chest pain, shortness of breath and palpitations. Echo was done yesterday and revealed an ejection fraction of 65%, ventricular diastolic dysfunction, trace to mild tricuspid valve regurgitation and PAP of 39 mmHg. Carotid ultrasound revealed less than 50% stenosis to both carotids. Dr. Bernard has evaluated her for apnea. He plans to work this up as an outpatient. She has been given a follow-up appointment with Dr. Castillo for an outpatient cardiac stress test. No new labs to review today. Vital signs are stable. She is in sinus rhythm with heart rates in the 70s without any overt arrhythmias or ectopy noted. Exam (Progress Note) - Constitutional Vitals: Period Temp Pulse Resp BP Sys/[place] Pulse Ox Last 24 Hr 97.7 F-98.2 F 64-81 16-20 100-144/68-92 95-100 General appearance: no acute distress, over weight - Head Head exam: Present: normal inspection, normocephalic, atraumatic - Respiratory Respiratory exam: Present: clear to auscultation bilaterally. Absent: accessory muscle use, rales, rhonchi, stridor, wheezes - Cardiovascular Cardiovascular exam: Present: regular rate and rhythm. Absent: carotid bruit, diastolic murmur, irregular rhythm, tachycardia - GI/Abdominal GI/Abdominal exam: Present: normal bowel sounds, soft. Absent: distended, firm , mass, tenderness - Extremities Exam Extremities exam: Present: normal inspection, normal capillary refill. Absent: calf tenderness, edema - Neurological Exam Neurological exam: Present: alert, oriented X3, normal gait - Psychiatric Psychiatric exam: Present: normal affect, normal mood. Absent: agitated, anxious, depressed - Skin Skin exam: Present: normal color, warm, dry Result/EKG - Labs CBC & BMP: 01/15/17 16:32 01/16/17 04:51 Lab Results: I have reviewed the past 24 hour labs Labs: Laboratory Results - last 24 hr 01/16/17 12:31 B-Natriuretic Peptide 21 - Diagnostic Findings Procedure: Ultrasound: report reviewed by me - EKG EKG results: interpreted by me, sinus rhythm Specialty Discharge - Follow Up or Referrals Follow up with: Roland Castillo MD [Physician] - 1 Week (OP ST cardiolyte next week & F/U with Jonathan in 2 weeks Stress test - Saturday, 01/21 at 2:[address] Castillo's office. May eat a light breakfast but nothing after 8:00 AM. Follow up with Dr. Castillo in his clinic on Saturday, 01/28 at 10:40 AM.) Maura Bernard MD [Physician] - (Sleep study 01/29. Arrive at [facility] area at 7:15 PM) Erma Roldan DO [Physician] - 02/12/17 2:15 pm IJonathan Dale, MD, personally performed the services described in this documentation, ascribed by Onyeda Rothman, RN in my presence, and it is both accurate and complete [id number] .
== END 2017-01-17 14:20 | disposition home or self-care (01) ==
LOC: N.ED 13:54 → N.EDINP 13:54 → N.TELES 19:38
PROVIDERS: ADMIT Internal Medicine; ATTEND Internal Medicine

== ENCOUNTER 2022-01-15 12:22 | Observation (INO) ==
[2022-01-15] MEDS ORDERED: NITROGLYCERIN 2% OINT 1 INCH/GM PACK TOP STA (18:13)
[2022-01-15] MEDS ORDERED: ASPIRIN 325 MG TABLET PO STA (18:13)
[2022-01-15] MEDS ORDERED: MORPHINE 2 MG/1 ML SYRINGE IV STA (18:13)
[2022-01-15] MEDS ORDERED: ONDANSETRON 4 MG/2 ML VIAL IV STA (18:13)
[2022-01-15 18:27] LABS: Basophils # 0.1 10*3/uL (0.0-0.2); Basophils % 0.5 % (0.0-0.8); Eosinophils # 0.5 10*3/uL (0.0-0.87); Eosinophils % 3.5 % (0.00-10.9); Hematocrit 37.1 VOL% (35.7-47.0); Hemoglobin 11.9 GM/DL (12.0-16.0); Immature Granulocytes % 0.3 %; Immature Granulocytes Absolute 0.04 #; Lymphocytes # 4.4 10*3/uL (1.4-4.0); Lymphocytes % 31.5 % (21.3-54.2); Mean Corpuscular HGB Conc 32.1 GM/DL (32-36); Mean Corpuscular Volume 75.1 FL (87-102); Mean Platelet Volume 10.1 FL (9.6-12.0); Monocytes % 5.4 % (1.7-12.7); Neutrophils % 58.8 % (38.7-73.9); Platelet Count 480 T/CUMM (130-400); Red Blood Count 4.94 MC/CUMM (3.8-5.5); Red Cell Distribution Width 14.5 % (9.3-17.3); White Blood Count 13.8 T/CUMM (4-12)
[2022-01-15 18:35] LABS: Alanine Aminotransferase 19 U/L (13-56); Albumin 4.2 G/DL (3.4-5.0); Alkaline Phosphatase 97 U/L (45-117); Aspartate Amino Transferase 19 U/L (0-37); Blood Urea Nitrogen 9 MG/DL (7-18); Calcium 9.5 MG/DL (8.5-10.1); Carbon Dioxide 29 MMOL/L (21-32); Estimated Glom Filtration Rate 120 ML/MIN; Glucose 90 MG/DL (74-106); Osmolality,Calculated 271.8 MOS/KG (273-304); Potassium 3.2 MMOL/L (3.5-5.1); Sodium 137 MMOL/L (136-145); Total Protein 8.3 G/DL (6.4-8.2)
[2022-01-15] MEDS ORDERED: POTASSIUM CHLORIDE 20 MEQ TABLET PO STA (19:03)
[2022-01-15] MEDS ORDERED: METOPROLOL TARTRATE 25 MG TABLET PO STA (19:44)
[2022-01-15 20:33] LABS: Bilirubin,Urine Negative (Negative); Blood, Urine Negative (Negative); Glucose,Urine (UA) Negative (Negative); Ketones,Urine 20 mg/dL (Negative); Mucus,Urine Occasional /LPF (Occasional); Nitrite,Urine Negative (Negative); Protein,Urine Negative; Squamous Epithelial Cell,Urine Occasional /HPF (0-10); Urine Appearance CLEAR (Clear); Urine Color Yellow (Yellow); Urine Specific Gravity 1.013 (1.001-1.035); Urine Urobilinogen < 2.0 EU/DL (<2.0)
[2022-01-15] MEDS ORDERED: DEXTROSE 10% 250 ML BAG IV PRN (21:16)
[2022-01-15] MEDS ORDERED: GLUCAGON 1 MG VIAL IM PRN (21:16)
[2022-01-15] MEDS ORDERED: ACETAMINOPHEN 325 MG TABLET PO PRN (21:16)
[2022-01-15] MEDS ORDERED: MORPHINE 2 MG/1 ML SYRINGE IV PRN (21:16)
[2022-01-15] MEDS ORDERED: ONDANSETRON 4 MG/2 ML VIAL IV PRN (21:16)
[2022-01-15] MEDS ORDERED: SODIUM CHLORIDE 0.9% 1,000 ML IV SCH (21:30)
[2022-01-15] MEDS: ENOXAPARIN 100 MG/ML SYRINGE SUBCUT SCH (21:35)
[2022-01-16] MEDS: INSULIN REGULAR 100 UNIT/ML SUBCUT SCH ×3 (00:02→11:47)
[2022-01-16 04:16] LABS: Basophils # 0.1 10*3/uL (0.0-0.2); Basophils % 0.5 % (0.0-0.8); Eosinophils # 0.4 10*3/uL (0.0-0.87); Eosinophils % 3.4 % (0.00-10.9); Hemoglobin 11.2 GM/DL (12.0-16.0); Immature Granulocytes % 0.4 %; Immature Granulocytes Absolute 0.05 #; Lymphocytes # 3.1 10*3/uL (1.4-4.0); Lymphocytes % 25.8 % (21.3-54.2); Mean Corpuscular Volume 74.2 FL (87-102); Mean Platelet Volume 9.5 FL (9.6-12.0); Monocytes % 4.8 % (1.7-12.7); Neutrophils % 65.1 % (38.7-73.9); Platelet Count 448 T/CUMM (130-400); Red Blood Count 4.72 MC/CUMM (3.8-5.5); Red Cell Distribution Width 14.4 % (9.3-17.3)
[2022-01-16 04:44] LABS: Albumin 3.6 G/DL (3.4-5.0); Bilirubin,Total 0.4 MG/DL (0.20-1.00); Calcium 8.7 MG/DL (8.5-10.1); Osmolality,Calculated 275.5 MOS/KG (273-304); Potassium 3.6 MMOL/L (3.5-5.1); Risk Ratio 2.98; Total Protein 7.6 G/DL (6.4-8.2); VLDL Cholesterol 15.2 MG/DL
[2022-01-16] MEDS ORDERED: SIMETHICONE CHEW 125 MG TABLET PO PRN (08:57)
[2022-01-16] MEDS ORDERED: amLODIPine 5 MG TABLET PO SCH (09:00)
[2022-01-16] MEDS ORDERED: ASPIRIN CHEW 81 MG TABLET PO SCH (09:00)
[2022-01-16] MEDS ORDERED: PANTOPRAZOLE 40 MG TABLET PO SCH (09:00)
[2022-01-16] MEDS ORDERED: hydroCHLOROthiazide 25 MG TABLET PO SCH (09:00)
[2022-01-16] MEDS ORDERED: DOCUSATE SODIUM 100 MG CAPSULE PO SCH (09:00)
[2022-01-16] MEDS ORDERED: ACETAMINOPHEN 325 MG TABLET PO SCH (09:00)
[2022-01-16] MEDS ORDERED: SIMETHICONE CHEW 125 MG TABLET PO SCH (09:00)
[2022-01-16] MEDS: ENOXAPARIN 100 MG/ML SYRINGE SUBCUT SCH (10:00)
[2022-01-16] MEDS: GABAPENTIN 100 MG CAPSULE PO SCH ×2 (10:00→15:41)
[2022-01-16 14:09] VITALS: BP 99/63
[2022-01-16] MEDS ORDERED: INFLUENZA VIRUS VACCINE 0.5 ML SYRINGE IM ONE (15:47)
[2022-01-16] MEDS ORDERED: SIMVASTATIN 10 MG TABLET PO SCH (21:00)
== END 2022-01-16 16:56 | disposition home or self-care (01) ==
LOC: N.EDINP 12:22 → N.ED 12:22 → N.TELES 01-16 14:10
PROVIDERS: ADMIT Family Medicine; ATTEND Family Medicine